=== PATIENT | male | born 1980 | race Two or more races ===

== ENCOUNTER 2023-09-06 13:56 | Inpatient (IN) | payer OTHER ==
[~2023-09-06] VITALS: Ht 177.8 cm; Wt 107.4 kg
[2023-09-06 14:25] LABS: Basophils # (auto) 0 10 ^3/uL (0-0.2); Basophils % (auto) 0.6 % (0.0-2.0); Eosinophils # (auto) 0.2 10 ^3/uL (0-0.8); Eosinophils % (auto) 2.7 % (0.0-7.0); Hematocrit 44.1 % (41.0-53.0); Hemoglobin 14.6 g/dL (13.5-17.5); Lymphocytes # (auto) 2.2 10 ^3/uL (0.4-5.4); Lymphocytes % (auto) 32.3 % (10.0-50.0); Mean Corpuscular Hemoglobin 28.7 pg (28.0-32.0); Mean Corpuscular Hgb Conc. 33.1 g/dL (32.0-36.0); Mean Corpuscular Volume 86.7 fL (80.0-100.0); Monocytes # (auto) 0.5 10 ^3/uL (0-1.3); Monocytes % (auto) 7.4 % (0.0-12.0); Neutrophils # (auto) 3.9 10 ^3/uL (1.6-8.6); Nucleated Red Blood Cells % 0.1 %; Red Blood Cells 5.09 10^6/uL (4.5-5.90); Red Cell Distribution Width 14.9 % (11.8-14.3); White Blood Cell 6.8 10^3/uL (4.4-10.8)
[2023-09-06 14:46] LABS: Alanine Aminotransferase 25 U/L (7-40); Albumin 4.5 g/dL (3.2-4.8); Alkaline Phosphatase 56 U/L (46-116); Anion Gap 11 (5-15); Aspartate Aminotransferase 30 U/L (13-40); BUN/Creatinine Ratio 12.2 (10.0-20.0); Bilirubin, Total 0.9 mg/dL (0.2-1.0); Blood Urea Nitrogen 9 mg/dL (9-23); Calcium 9.8 mg/dL (8.5-10.1); Carbon Dioxide 29 mmol/L (20-30); Chloride 100 mmol/L (98-107); Glucose 92 mg/dL (74-106); Potassium 3.8 mmol/L (3.5-5.1); Sodium 140 mmol/L (136-145); Total Protein 7.3 g/dL (5.7-8.2)
[2023-09-06] MEDS: PANTOPRAZOLE 40 MG/10 ML VIAL INJ IV ONE (16:38)
[2023-09-06] MEDS: PROCHLORPERAZINE EDISYLATE 5 MG/ML 2ML VIAL IV ONE (16:39)
[2023-09-06] MEDS: HYDROmorphone HCL 2 MG/ML VL/or syr IM ONE (16:55)
[2023-09-06] MEDS ORDERED: DOCUSATE SOD 100 MG CAP PO PRN (17:15)
[2023-09-06] MEDS ORDERED: PIPERACILLIN-TAZOB 3.375GM 100 ML IV ONE (17:15)
[2023-09-06 17:39] LABS: INR 1.12 (0.9-1.15); Prothrombin Time 11.7 sec (9.3-11.8)
[2023-09-06] MEDS: SODIUM CHLORIDE 0.9% 1,000 ML IV ONE (18:59)
[2023-09-06] MEDS: PIPERACILLIN-TAZOB 3.375GM 100 ML IV SCH (19:00)
[2023-09-07] MEDS: SODIUM CHLORIDE 0.9% 1,000 ML IV SCH (01:19)
[2023-09-07 05:00] VITALS: PULSE 76; RESP 22; O2SAT 96
[2023-09-07] MEDS: ONDANSETRON HCL 4 MG/2 ML VIAL IV PRN (06:12)
[2023-09-07] MEDS: HYDROmorphone HCL 2 MG/ML VL/or syr IV PRN (06:15)
[2023-09-07 08:00] VITALS: PULSE 83; RESP 16; O2SAT 98
[2023-09-07] MEDS: PANTOPRAZOLE 40 MG/10 ML VIAL INJ IV SCH (09:58)
[2023-09-07] MEDS: HYDROcodone-ACET 5/325MG TAB PO PRN (10:06)
[2023-09-07 13:00] VITALS: BP 117/76; PULSE 62; RESP 15; TEMP 98.2; O2SAT 99
[2023-09-07] MEDS: LACTATED RINGER'S 1,000 ML IV SCH (13:30)
[2023-09-07 16:00] VITALS: BP 124/79; PULSE 86; RESP 20; TEMP 98.8; O2SAT 95
[2023-09-07 20:00] VITALS: BP 113/75; PULSE 85; RESP 18; TEMP 98.6; O2SAT 97
[2023-09-07 22:00] VITALS: BP 108/73; PULSE 85; RESP 18; TEMP 98.3; O2SAT 96
[2023-09-08] VITALS (7 sets, daily range): BP systolic 100–117; BP diastolic 65–79; PULSE 66–85; RESP 16–20; TEMP 97.7–98.6; O2SAT 90–98
[2023-09-08 02:56] LABS: Urine Bacteria NONE SEEN /hpf (None Seen); Urine Blood Negative /uL (Negative); Urine Clarity Clear (Clear); Urine Color Yellow (Yellow); Urine Protein, UAD Negative (Negative); Urine Specific Gravity 1.015 (1.001-1.035); Urine Urobilinogen Normal (Negative); Urine WBC 1 /hpf (0 - 3); Urine pH 6.5 (5.0-8.0)
[2023-09-08 06:20] LABS: Basophils # (auto) 0.1 10 ^3/uL (0-0.2); Basophils % (auto) 0.4 % (0.0-2.0); Eosinophils # (auto) 0.1 10 ^3/uL (0-0.8); Hematocrit 43.2 % (41.0-53.0); Hemoglobin 14.4 g/dL (13.5-17.5); Lymphocytes # (auto) 1.5 10 ^3/uL (0.4-5.4); Lymphocytes % (auto) 11.6 % (10.0-50.0); Mean Corpuscular Hgb Conc. 33.5 g/dL (32.0-36.0); Mean Corpuscular Volume 86.6 fL (80.0-100.0); Monocytes % (auto) 7.6 % (0.0-12.0); Neutrophils # (auto) 10.2 10 ^3/uL (1.6-8.6); Neutrophils % (auto) 79.4 % (37.0-80.0); Nucleated Red Blood Cells % 0.1 %; Red Blood Cells 4.98 10^6/uL (4.5-5.90); Red Cell Distribution Width 14.3 % (11.8-14.3); White Blood Cell 12.8 10^3/uL (4.4-10.8)
[2023-09-08 06:42] LABS: Alanine Aminotransferase 16 U/L (7-40); Albumin 4.4 g/dL (3.2-4.8); Alkaline Phosphatase 50 U/L (46-116); Aspartate Aminotransferase 19 U/L (13-40); Calcium 9.2 mg/dL (8.5-10.1); Chloride 101 mmol/L (98-107); Glucose 106 mg/dL (74-106); Potassium 3.2 mmol/L (3.5-5.1); Sodium 137 mmol/L (136-145); Total Protein 7.4 g/dL (5.7-8.2)
[2023-09-08 06:45] LABS: Carbon Dioxide 27 mmol/L (20-30)
[2023-09-08 06:54] LABS: BUN/Creatinine Ratio 6.8 (10.0-20.0); Blood Urea Nitrogen < 5 mg/dL (9-23)
[2023-09-08 07:18] LABS: Anion Gap 9 (5-15)
[2023-09-08] MEDS ORDERED: metroNIDAZOLE 500MG/100ML 100 ML IV ONE (09:54)
[2023-09-08] MEDS ORDERED: MEPERIDINE HCL (50 MG/ML) 1 ML VIAL ONE (10:02)
[2023-09-08] MEDS ORDERED: MIDAZOLAM HCL 2MG/2ML 2ml VIAL (1mg/ml) ONE (10:02)
[2023-09-08] MEDS ORDERED: fentaNYL CITRATE 100 MCG/2 ML VL ONE (10:02)
[2023-09-08] MEDS ORDERED: DexAMETHasone SOD PHOS 10MG/1ML VIAL INJ ONE (10:31)
[2023-09-08] MEDS ORDERED: HYDROmorphone HCL 2 MG/ML VL/or syr IV PRN (10:45)
[2023-09-08] MEDS ORDERED: MIDAZOLAM HCL 2MG/2ML 2ml VIAL (1mg/ml) IV PRN (10:45)
[2023-09-08] MEDS ORDERED: hydrALAZINE HCL 20 MG/ML VL IV PRN (10:45)
[2023-09-08] MEDS ORDERED: LABETALOL HCL 5 MG/ML 4ML SYRINGE IV PRN (10:45)
[2023-09-08] MEDS ORDERED: ONDANSETRON HCL 4 MG/2 ML VIAL IV PRN ×2 (10:45→11:30)
[2023-09-08] MEDS ORDERED: MORPHINE SULFATE 4 MG/ML SYR/VIAL IV PRN (10:45)
[2023-09-08] MEDS ORDERED: PROPOFOL 10 MG/ML 20 ML IV ONE (11:22)
[2023-09-08] MEDS ORDERED: ONDANSETRON HCL 4 MG/2 ML VIAL ONE (11:22)
[2023-09-08] MEDS: D5W/SOD CHL 0.45%/KCL 20MEQ 1,000 ML IV SCH ×2 (11:30→14:36)
[2023-09-08] MEDS: HYDROmorphone HCL 2 MG/ML VL/or syr IV PRN (14:14)
[2023-09-08] MEDS: metroNIDAZOLE 500MG/100ML 100 ML IV SCH (14:15)
[2023-09-08] MEDS: POTASSIUM CHLORIDE 20 MEQ, LIDOCAINE 1% (LOCAL ANESTH.) 2 ML in SODIUM CHL 0.9% 100 ML IV ONE (16:13)
[2023-09-08] MEDS ORDERED: PHENYLEPHRINE HCL 10 MG/ML VL IV ONE (17:24)
[2023-09-08] MEDS ORDERED: ROCURONIUM 10MG/ML 10ML VIAL IV ONE (17:24)
[2023-09-09 05:00] VITALS: BP 99/82; PULSE 79; RESP 16; TEMP 98.7; O2SAT 91
[2023-09-09 06:45] LABS: Basophils # (auto) 0 10 ^3/uL (0-0.2); Basophils % (auto) 0.2 % (0.0-2.0); Eosinophils # (auto) 0 10 ^3/uL (0-0.8); Eosinophils % (auto) 0.3 % (0.0-7.0); Hematocrit 36.7 % (41.0-53.0); Hemoglobin 12.4 g/dL (13.5-17.5); Lymphocytes # (auto) 1.1 10 ^3/uL (0.4-5.4); Lymphocytes % (auto) 11.6 % (10.0-50.0); Mean Corpuscular Hemoglobin 29.5 pg (28.0-32.0); Mean Corpuscular Hgb Conc. 33.9 g/dL (32.0-36.0); Mean Corpuscular Volume 87.1 fL (80.0-100.0); Monocytes # (auto) 0.7 10 ^3/uL (0-1.3); Monocytes % (auto) 7.5 % (0.0-12.0); Neutrophils # (auto) 7.4 10 ^3/uL (1.6-8.6); Neutrophils % (auto) 80.4 % (37.0-80.0); Red Blood Cells 4.22 10^6/uL (4.5-5.90); Red Cell Distribution Width 14.6 % (11.8-14.3); White Blood Cell 9.2 10^3/uL (4.4-10.8)
[2023-09-09 08:37] VITALS: BP 117/74; PULSE 67; RESP 17; TEMP 98; O2SAT 93
[2023-09-09 12:57] VITALS: BP 106/61; PULSE 83; RESP 17; TEMP 98.1; O2SAT 94
[2023-09-09] MEDS: PANTOPRAZOLE 40 MG/10 ML VIAL INJ IV SCH (14:58)
[2023-09-09] MEDS: D5W/SOD CHL 0.45%/KCL 20MEQ 1,000 ML IV SCH (14:59)
[2023-09-09 17:00] VITALS: BP 98/59; PULSE 80; RESP 17; TEMP 98.7; O2SAT 99
[2023-09-09 20:00] VITALS: BP 100/58; PULSE 89; RESP 17; TEMP 99.5
[2023-09-09 22:00] VITALS: BP 100/58; PULSE 89; RESP 17; TEMP 99.5; O2SAT 92
[2023-09-10 05:00] VITALS: BP 110/70; PULSE 82; RESP 19; TEMP 98.7; O2SAT 95
[2023-09-10 08:00] VITALS: PULSE 78; RESP 17; O2SAT 91; O2SAT 93
[2023-09-10 08:43] VITALS: BP 113/69; PULSE 78; RESP 17; TEMP 98.2; O2SAT 91
[2023-09-10] MEDS: ENOXAPARIN SOD 40 MG/0.4 ML SYRINGE SC SCH (09:44)
[2023-09-10] MEDS: levoFLOXacin 500MG 100 ML IV SCH (09:52)
[2023-09-10] MEDS ORDERED: METR-344 PO (10:27)
[2023-09-10] MEDS ORDERED: HYDR-4902 PO (10:27)
[2023-09-10] MEDS ORDERED: LEVO500T91 PO (10:27)
[2023-09-10] MEDS ORDERED: DOCU-265 PO (10:27)
[2023-09-10 12:58] VITALS: BP 103/71; PULSE 83; RESP 17; TEMP 98.5; O2SAT 93
[2023-09-10 14:31] VITALS: BP 103/71; PULSE 83; RESP 17; TEMP 98.5; O2SAT 93
[2023-09-10 16:54] VITALS: BP 124/83; PULSE 84; RESP 17; TEMP 98.8; O2SAT 94
== END 2023-09-10 17:25 | disposition home or self-care (01) | DRG 419 ==
LOC: ER 13:56 → OVERFLOW 17:16 → CENTRAL 09-07 11:02
PROVIDERS: ADMIT Nurse Practitioner Family; ATTEND Nurse Practitioner Acute Care
PROC: 0FT44ZZ Resection of Gallbladder, Percutaneous Endoscopic Approach (ICD-10-PCS; principal; 2023-09-08 10:07)
DX: K80.00 Calculus of gallbladder with acute cholecystitis without obstruction (principal); Z83.3 Family history of diabetes mellitus; E66.9 Obesity, unspecified; Z68.34 Body mass index [BMI] 34.0-34.9, adult
CPT/HCPCS: 36415; 71046; 74181; 76705; 80053; 81001; 82247; 83690; 84484; 85025; 85610; 86850; 86900; 86901; 87070; 87075; 87205; 93005; C9113; G0378; J1100; J1956; J2001; J2250; J2405; J2543; J2704; J3490

== ENCOUNTER 2023-09-18 09:08 | Emergency (ER) | payer OTHER ==
[~2023-09-18] VITALS: Ht 177.8 cm; Wt 106.3 kg
[~2023-09-18 09:08] MED LIST: DOCU-265 PO; HYDR-4902 PO; LEVO500T91 PO; METR-344 PO
[2023-09-18 10:11] VITALS: BP 107/71; PULSE 85; RESP 16; TEMP 97.7; O2SAT 98
== END 2023-09-18 10:15 | disposition home or self-care (01) ==
LOC: ER 09:08
DX: T81.89XD Other complications of procedures, not elsewhere classified, subsequent encounter (principal); K80.20 Calculus of gallbladder without cholecystitis without obstruction; Z48.01 Encounter for change or removal of surgical wound dressing; Z98.890 Other specified postprocedural states; Z79.899 Other long term (current) drug therapy; Y92.89 Other specified places as the place of occurrence of the external cause